=== PATIENT | male | born 1980 | race Caucasian/White ===

== ENCOUNTER 2018-08-21 18:16 | Emergency (ER) | payer BC, MEDICAID ==
[2018-08-21 19:54] LABS: BASO % 0.4 % (0-6); EOS % 3.9 % (0-6); GRAN % 43.1 % (47-80); HEMATOCRIT 47.3 % (42.0-52.0); HEMOGLOBIN 15.9 gm/dl (14.0-18.0); LYMPH % 39.6 % (16-45); MEAN CELL VOLUME 83.1 fl (81-97); MEAN CORPUSCULAR HEMOGLOBIN 27.9 pg (27-33); MEAN CORPUSCULAR HGB CONC 33.6 g/dl (32-36); MEAN PLATELET VOLUME 8.6 fl (7.4-10.4); PLATELET COUNT 316 K/uL (130-400); RED BLOOD COUNT 5.69 M/uL (4.40-5.70); RED CELL DISTRIBUTION WIDTH 13.9 % (11.5-14.5); URINE APPEARANCE CLEAR; URINE BILIRUBIN NEGATIVE (NEGATIVE); URINE BLOOD NEGATIVE (NEGATIVE); URINE COLOR YELLOW; URINE GLUCOSE (UA) NEGATIVE (NEGATIVE); URINE KETONE NEGATIVE (NEGATIVE); URINE LEUKOCYTE ESTERASE NEGATIVE (NEGATIVE); URINE NITRITE NEGATIVE (NEGATIVE); URINE PROTEIN NEGATIVE (NEGATIVE); URINE UROBILINOGEN 0.2 E.U./dL (0.20 - 1.00); WHITE BLOOD COUNT W/O DIFF 6.7 K/uL (4.2-12.2)
[2018-08-21] MEDS: MAGNESIUM HYDROXIDE/AL HYDROX 30 ML, LIDOCAINE VISC 2% 200 MG PO ONE ×2 (19:54)
--- NOTE | 2018-08-21 19:55 | Emergency Department Record ---
History of Present Illness - General Chief Complaint: Abdominal Pain Stated Complaint: ABD AND BACK PAIN/ BLACK STOOL Time Seen by Provider: 08/21/18 19:27 Source: Patient Mode of Arrival: Ambulatory Limitations: No limitations - History of Present Illness Initial Comments: pt has been having midepigastric pain for weeks that is getting worse. today he took pepto bismol for it and now his stool is black [pt informed that pepto bismol turns stool black].. pt has no n/v/c/d. Onset/Timin -: Days(s) Location: Epigastric Radiation: Epigastric Severity: Moderate Severity scale (1-10): 6 Quality: Aching, Burning Consistency: Constant Improves With: Rest Worsens With: Eating Associated Symptoms: Melena Treatments Prior to Arrival: Antacids - Related Data Home Medications Medication Instructions Recorded Confirmed Last Taken Lisinopril 10 mg PO DAILY 08/21/18 08/21/18 1 Day Ago ~08/20/18 Previous Rx's Medication Instructions Recorded Naproxen [Naprosyn] 500 mg PO Q12H #30 tab. 08/21/15 Omeprazole [Prilosec] 20 mg PO DAILY #20 cap. 08/21/18 Allergies Allergy/AdvReac Type Severity Reaction Status Date / Time Penicillins Allergy RASH Verified 08/21/18 19:11 Travel Screening - Travel/Exposure Within Last 30 Days Have you traveled within the last 30 days?: No - Travel/Exposure Within Last Year Have you traveled outside the [place] in the last year?: No - Additonal Travel Details Have you been exposed to anyone with a communicable illness?: No - Travel Symptoms Symptom Screening: None Review of Systems Reviewed: No additional complaints except as noted below Constitutional: Reports: As per HPI. Denies: Chills, Fever, Malaise, Night sweats, Weakness, Weight change Eyes: Reports: As per HPI. Denies: Eye discharge, Eye pain, Photophobia, Vision change ENT: Reports: As per HPI. Denies: Congestion, Dental pain, Ear pain, Epistaxis , Hearing loss, Throat pain Respiratory: Reports: As per HPI. Denies: Cough, Dyspnea, Hemoptysis, Stridor, Wheezes Cardiovascular: Reports: As per HPI. Denies: Arrhythmia, Chest pain, Dyspnea on exertion, Edema, Murmurs, Orthopnea, Palpitations, Paroxysmal nocturnal dyspnea, Rheumatic Fever, Syncope Endocrine: Reports: As per HPI. Denies: Fatigue, Heat or cold intolerance, Polydipsia, Polyuria Gastrointestinal: Reports: As per HPI. Denies: Abdominal pain, Constipation, Diarrhea, Hematemesis, Hematochezia, Melena, Nausea, Vomiting Genitourinary: Reports: As per HPI. Denies: Dysuria, Frequency, Hematuria, Incontinence, Retention, Testicular pain, Testicular mass, Urgency Musculoskeletal: Reports: As per HPI. Denies: Arthralgia, Back pain, Gout, Joint swelling, Myalgia, Neck pain Skin: Reports: As per HPI. Denies: Bruising, Change in color, Change in hair/ nails, Lesions, Pruritus, Rash Neurological: Reports: As per HPI. Denies: Abnormal gait, Confusion, Headache, Numbness, Paresthesias, Seizure, Tingling, Tremors, Vertigo, Weakness Psychiatric: Reports: As per HPI. Denies: Anxiety, Auditory hallucinations, Depression, Homicidal thoughts, Suicidal thoughts, Visual hallucinations Hematological/Lymphatic: Reports: As per HPI. Denies: Anemia, Blood Clots, Easy bleeding, Easy bruising, Swollen glands Past Medical History - SOCIAL HISTORY Smoking Status: Former smoker Alcohol Use: Rare, Occasional Drug Use: None - RESPIRATORY Hx Respiratory Disorders: No - CARDIOVASCULAR Hx Cardio Disorders: Yes Hx Hypertension: Yes - NEURO Hx Neuro Disorders: Yes Hx TIA: Yes (2012) - GI Hx Reflux: Yes - Hx Genitourinary Disorders: No - ENDOCRINE Hx Endocrine Disorders: No - MUSCULOSKELETAL Hx Musculoskeletal Disorders: Yes Hx Arthritis: Yes (Arslan. wrists) - PSYCH Hx Psych Problems: No - HEMATOLOGY/ONCOLOGY Hx Hematology/Oncology Disorders: No Family Medical History Any Significant Family History?: Yes Hx Diabetes: Father Hx HTN: Father Physical Exam - General General Appearance: Alert, Oriented x3, Cooperative, Mild distress - Head Head exam: Normal inspection - Eye Eye exam: Normal appearance, PERRL, EOMI Pupils: Normal accommodation - ENT ENT exam: Normal exam, Mucous membranes moist, Normal external ear exam, Normal orophraynx Ear exam: Normal external inspection. negative: External canal tenderness Nasal Exam: Normal inspection. negative: Discharge, Sinus tenderness Mouth exam: Normal external inspection, Tongue normal Teeth exam: Normal inspection. negative: Dental caries Throat exam: Normal inspection. negative: Tonsillar erythema, Tonsillar exudate - Neck Neck exam: Normal inspection, Full ROM. negative: Tenderness - Respiratory Respiratory exam: Normal lung sounds bilaterally. negative: Respiratory distress - Cardiovascular Cardiovascular Exam: Regular rate, Normal rhythm, Normal heart sounds - GI/Abdominal GI/Abdominal exam: Soft, Normal bowel sounds, Tenderness - Rectal Rectal exam: Black stool, Heme (-) stool - exam: Deferred - Extremities Extremities exam: Normal inspection, Full ROM, Normal capillary refill. negative: Tenderness - Back Back exam: Reports: Normal inspection, Full ROM. Denies: Muscle spasm, Rash noted, Tenderness - Neurological Neurological exam: Alert, CN II-XII intact, Normal gait, Oriented X3 - Psychiatric Psychiatric exam: Normal affect, Normal mood - Skin Skin exam: Dry, Intact, Normal color, Warm Course Vital Signs 08/21/18 19:00 Temperature 98.9 F Pulse Rate 88 Respiratory 17 Rate Blood Pressure 155/96 Pulse Ox 98 - Reevaluation(s) Reevaluation #1: 08/21/18 21:24 ct neg, cxr neg Medical Decision Making - Lab Data Result diagrams: 08/21/18 19:45 08/21/18 19:45 Disposition Disposition: Discharge Clinical Impression: Abdominal pain Qualifiers: Abdominal location: epigastric Qualified Code(s): R10.13 - Epigastric pain Disposition: Home, Self-Care Condition: (1) Good Instructions: Abdominal Pain (ED) Additional Instructions: follow up with GI doctor. return sooner if worse. bland diet Prescriptions: Omeprazole [Prilosec] 20 mg PO DAILY #20 cap Referrals: MARK SANDOVAL [DOCTOR OF OSTEOPATH] - [facility] [Provider Group] Quality - Quality Measures Quality Measures: N/A - Blood Pressure Screening Does Patient Have Any of the Following: Active Dx of HTN Blood Pressure Classification: Hypertensive Reading Systolic Measurement: 155 Diastolic Measurement: 96 Screening for High Blood Pressure: Patient Exclusion, Hx of HTN [[id number]]
[2018-08-21 20:03] LABS: BLOOD UREA NITROGEN 17 mg/dL (6-20); CREATININE 0.8 mg/dL (0.7-1.2); EST GLOMERULAR FILTRATION RATE > 60 mL/min
[2018-08-21 20:04] LABS: TOTAL PROTEIN 7.5 g/dL (6.6-8.7)
[2018-08-21 20:06] LABS: GLUCOSE,RANDOM 112 mg/dL (74-109)
[2018-08-21 20:08] LABS: ALBUMIN 4.4 g/dL (4.0-5.0); ALT/SGPT 25 U/L (<41); AST/SGOT 16 U/L (10.0-50.0)
[2018-08-21 20:09] LABS: ALKALINE PHOSPHATASE 78 U/L (40-129); BILIRUBIN,DIRECT < 0.2 mg/dL (0-0.3); LIPASE 20 U/L (13-60)
--- NOTE | 2018-08-25 10:15 | RADIOLOGY REPORT ---
EXAM: CHEST, TWO VIEWS HISTORY: FOLLOW-UP LUNG NODULE. MEDIAL CHEST PAIN FOR ONE DAY. TECHNIQUE: PA and lateral views of the chest were obtained. Comparison: No prior chest exam of any kind with which to compare. FINDINGS: The heart size is normal. There is some vague density overlying the left mid lung probably just due to overlapping anterior aspect of the left third and posterior aspect of the left sixth ribs. I do not see a definite pulmonary nodule on these two views, but if there is a prior radiographic exam describing a nodule, direct comparison with that exam should be performed and we would be happy to provide an addendum comparison report once the prior study is made available to properly evaluate the history of a prior lung nodule. No definite acute infiltrate is seen and no pleural effusion or pneumothorax evident. IMPRESSION: THE CHEST ITSELF APPEARS ESSENTIALLY NEGATIVE TODAY, HOWEVER, THERE IS A HISTORY OF A PULMONARY NODULE PRESUMABLY ON SOME PRIOR OUTSIDE EXAM, AND DIRECT COMPARISON WITH THAT PRIOR STUDY IS VERY STRONGLY RECOMMENDED TO MORE ACCURATELY ASSESS THE PREVIOUS HISTORY OF PULMONARY NODULE. JOB NUMBER: [id number] MTDD
--- NOTE | 2018-08-25 10:20 | CT SCAN REPORT ---
EXAM: EMERGENCY CT OF THE ABDOMEN AND PELVIS WITHOUT CONTRAST HISTORY: EPIGASTRIC ABDOMINAL PAIN, BLACK STOOL, BLOATING, WITH SYMPTOMS FOR A WEEK. TECHNIQUE: Axial CT scan of the abdomen and pelvis was performed without oral or IV contrast at the referring physician's request. Comparison: No prior CT with which to compare. FINDINGS: No calcified gallstones are seen within the gallbladder. No intrarenal calculi or hydronephrosis identified on either side. No hydroureter is seen on either side as well. No ureteral calculus seen on either side and no bladder calculus evident. Evaluation of the bowel and viscera is extremely limited without oral or IV contrast. Given this limitation, no definite hepatic, splenic, adrenal, pancreatic, or renal mass identified. Minor calcification in the prostate. No appendicitis evident. No free intraperitoneal air or free intraperitoneal fluid evident. Minor spurring in the thoracic and lumbar spine. There is probably some mild bulging of the annulus at several of the lumbar levels. If there is clinical concern for the lumbar spine and any possible mild disk herniation, this could be more fully evaluated with an MRI of the lumbar spine which would be recommended if felt clinically warranted and no contraindicated. IMPRESSION: EMERGENCY NONCONTRAST CT APPEARS ESSENTIALLY NEGATIVE WITH NO ACUTE FINDING IDENTIFIED. THERE IS PROBABLY SOME MILD DEGENERATIVE CHANGE IN THE LUMBAR SPINE. JOB NUMBER: [id number] MTDD
== END 2018-08-21 21:41 | disposition home or self-care (01) ==
LOC: ER 18:16
DX: R10.13 Epigastric pain (principal); K92.1 Melena; I10 Essential (primary) hypertension; Z87.890 Personal history of sex reassignment
CPT/HCPCS: 71046; 74176; 80048; 80076; 81003; 83690; 85025; 99283; 99284